=== PATIENT | female | born 1950 | race Caucasian/White ===

== ENCOUNTER 2017-11-04 05:26 | Day surgery (SDC) | payer OTHER ==
[~2017-11-04] VITALS: Ht 172.7 cm; Wt 117.9 kg
[2017-11-04] MEDS ORDERED: CEFAZOLIN 1 GM IVPB PREMIX 50 ML IV ONE ×2 (07:00→07:24)
[2017-11-04] MEDS ORDERED: IOHEXOL 50 ML IV ONE (07:36)
[2017-11-04] MEDS ORDERED: LR 1,000 ML IV SCH (08:31)
[2017-11-04] MEDS ORDERED: HYDROmorphone 1 MG INJ. 1 MG/ML AMPUL IVP PRN ×2 (08:45→11:45)
[2017-11-04] MEDS ORDERED: HYDROmorphone 2 MG/ML VIAL IVP PRN ×2 (08:45)
[2017-11-04] MEDS ORDERED: MEPERIDINE HCL/PF 25 MG/ML DISP.SYRIN IVP PRN (08:45)
[2017-11-04] MEDS ORDERED: D5/0.45 NS 1,000 ML IV SCH (08:55)
[2017-11-04] MEDS ORDERED: PROPOFOL 200MG/ 20ML VIAL (DIPRIVAN) IV ONE (09:00)
[2017-11-04] MEDS ORDERED: ONDANSETRON HCL 4 MG/2 ML VIAL ONE (09:00)
[2017-11-04] MEDS ORDERED: KETOROLAC TROMETHAMINE 30 MG VIAL ONE (09:00)
[2017-11-04] MEDS ORDERED: ROCURONIUM BROMIDE 10 MG/ML (ZEMURON) ONE (09:00)
[2017-11-04] MEDS ORDERED: NS IRRIG SOLN 1000 ML IR ONE (09:00)
[2017-11-04] MEDS ORDERED: BUPIVACAINE /PF 0.25% 30 ML VIAL INJ ONE (09:00)
[2017-11-04] MEDS ORDERED: NEOSTIGMINE METHYLSULFATE 1 MG/ML, 10 ML VIAL ONE (09:00)
[2017-11-04] MEDS ORDERED: LR 1,000 ML IV.SOLN IV ONE (09:00)
[2017-11-04] MEDS ORDERED: MIDAZOLAM HCL 5 MG/ML VIAL (VERSED) IV ONE (09:00)
[2017-11-04] MEDS ORDERED: GLYCOPYRROLATE 0.2 MG/ML VIAL ONE (09:00)
[2017-11-04] MEDS ORDERED: fentaNYL CITRATE 250 MCG/5 ML AMP ONE (09:00)
[2017-11-04] MEDS ORDERED: CEFAZOLIN 2 GM IVPB PREMIX 50 ML IV ONE (09:00)
[2017-11-04] MEDS ORDERED: SEVOFLURANE 15 MIN GAS INH ONE (09:00)
[2017-11-04] MEDS ORDERED: DEXAMETHASONE SOD PHOSPHATE 4 MG/ML VIAL ONE (09:00)
[2017-11-04 09:43] VITALS: BP_SYST 164
[2017-11-04] MEDS ORDERED: HYDROcodone/ACETAMIN 5-325 MG TAB (NORCO/ VICODIN) ONE (11:39)
[2017-11-04] MEDS ORDERED: HYDROcodone/ACETAMIN 5-325 MG TAB (NORCO/ VICODIN) PO PRN ×2 (11:45)
== END 2017-11-04 14:10 | disposition home or self-care (01) ==
LOC: SDS 05:26 → SMU 05:44 → SDS 14:10
PROVIDERS: ATTEND Colon & Rectal Surgery
DX: K80.10 Calculus of gallbladder with chronic cholecystitis without obstruction (principal); K43.2 Incisional hernia without obstruction or gangrene; I13.0 Hypertensive heart and chronic kidney disease with heart failure and stage 1 through stage 4 chronic kidney disease, or unspecified chronic kidney disease; N18.2 Chronic kidney disease, stage 2 (mild); I50.9 Heart failure, unspecified; Z80.0 Family history of malignant neoplasm of digestive organs; Z82.49 Family history of ischemic heart disease and other diseases of the circulatory system; Z80.8 Family history of malignant neoplasm of other organs or systems; Z98.890 Other specified postprocedural states; Z68.41 Body mass index [BMI] 40.0-44.9, adult; Z79.899 Other long term (current) drug therapy; Z88.8 Allergy status to other drugs, medicaments and biological substances; Z90.710 Acquired absence of both cervix and uterus
CPT/HCPCS: 47563; 74300; 88304; C1727; C1758; J0690 ×2; J1100; J1885; J2250; J2405; J2704; J2710; J3010; J3490 ×2; J7120; Q9967; 76000